=== PATIENT | female | born 1970 | race Caucasian/White ===

== ENCOUNTER 2020-06-29 19:05 | Emergency (ER) | payer SELFPAY ==
[2020-06-29] MEDS ORDERED: RT-ALBUTEROL/IPRATROPIUM 3 ML (DUONEB) VIAL ONE (19:12)
--- NOTE | 2020-06-30 10:14 | Diagnostic Imaging Report ---
Indication: Shortness of breath and cough PA and lateral chest Heart size and pulmonary vascularity are normal. Lungs are clear. There are no effusions or pneumothoraces. IMPRESSION: Negative chest Dictated by: Dictated on workstation # [id number]
--- NOTE | 2020-08-17 15:57 | ED Dyspnea ---
General Stated Complaint: SOA/COUGH History of Present Illness Date Seen by Provider: Jun 29, 2020 Time Seen by Provider: 19:10 Initial Comments 50-year-old female presents with shortness of breath and cough. Patient has known asthma and COPD. She continues to smoke at least a half pack of seizures per day. Patient reports she's have some mild wheezing. She is out of her albuterol. She has no reports of fevers chills, loss of sense of taste or smell, no known COVID contact. Reports her shortness of breath started this morning. Allergies and Home Medications Patient Home Medication List Home Medication List Reviewed: Yes Review of Systems Review of Systems Constitutional: No chills, No fever Respiratory: cough, short of breath, wheezing Cardiovascular: No chest pain, No palpitations Gastrointestinal: No abdominal pain, No nausea, No vomiting Musculoskeletal: no symptoms reported Skin: no symptoms reported Psychiatric/Neurological: No Symptoms Reported Past Bljzbgp-Fjmamg-Nhoowa Hx Past Med/Social Hx: Reviewed Nursing Past Med/Soc Hx Physical Exam Vital Signs Capillary Refill : Height, Weight, BMI Height: '" Weight: lbs. oz. 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 Patient will be prescribed albuterol. She stable will be discharged home Diagnostic Imaging Diagonstic Imaging: Xray Plain Films/CT/US/NM/MRI: chest Comments [facility], [place] NAME: NEGRA AVELAR [facility] REC#: [id number] PT STATUS: REG ER : 1970 PHYSICIAN: CAROL ROBLES DO ADMIT DATE: 06/29/20/ER FS Signed Date of Exam:06/29/20 CHEST PA/LAT (2 VIEW) Indication: Shortness of breath and cough PA and lateral chest Heart size and pulmonary vascularity are normal. Lungs are clear. There are no effusions or pneumothoraces. IMPRESSION: Negative panda Reviewed: Reviewed by Me, Reviewed/Discussed Departure Impression Primary Impression: Asthma exacerbation Qualified Codes: J45.901 - Unspecified asthma with (acute) exacerbation Disposition: HOME, SELF-CARE Condition: Stable Departure-Patient Inst. Referrals: NO,LOCAL PHYSICIAN (PCP) Primary Care Physician Add. Discharge Instructions: Follow-up with her primary care provider for recheck in today symptoms CAROL ROBLES DO Aug 17, 2020 15:56
== END 2020-06-29 19:50 | disposition home or self-care (01) ==
LOC: ER FS 19:06
DX: J45.901 Unspecified asthma with (acute) exacerbation (principal); J44.9 Chronic obstructive pulmonary disease, unspecified; F17.210 Nicotine dependence, cigarettes, uncomplicated
CPT/HCPCS: 71046